=== PATIENT | female | born 1960 | race Caucasian/White ===

== ENCOUNTER 2021-01-06 12:59 | Emergency (ER) | payer MEDICAID, MEDICARE, OTHER ==
[2021-01-06] MEDS ORDERED: HYDROcod/ACETAM 5/325 MG TABLET PO STA (13:16)
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
[2021-01-06 13:42] VITALS: BP 168/88
== END 2021-01-06 13:44 | disposition home or self-care (01) ==
LOC: ED 12:59
DX: S63.418A Traumatic rupture of collateral ligament of other finger at metacarpophalangeal and interphalangeal joint, initial encounter (principal); V28.4XXA Motorcycle driver injured in noncollision transport accident in traffic accident, initial encounter; Y93.55 Activity, bike riding; Z87.891 Personal history of nicotine dependence
CPT/HCPCS: 29125; 73130; 99283; A9270